=== PATIENT | female | born 1945 | race Caucasian/White ===

== ENCOUNTER 2016-08-04 07:52 | Emergency (ER) | payer MEDICARE, OTHER ==
[~2016-08-04] VITALS: Ht 167.6 cm; Wt 70.5 kg
[~2016-08-04 07:52] MED LIST: LEVO50TA6 PO; PANT40TA3 PO; [UNRECOGNIZED DRUG - CODE] PO
[2016-08-04 07:56] VITALS: BP 144/81; PULSE 79; RESP 18; O2SAT 99
--- NOTE | 2016-08-04 08:03 | ED.REPORT ---
HPI-Eye Problem Date of Service Aug 04, 2016 ED Provider: Bryan Chavez MD The patient is a 71 year old female who presents to the emergency department complaining of bilateral eye problem. Over the last 2 days she has noticed eye redness, "puffy" eyes, purulent drainage, and itching. She has not had similar symptoms in the past. She has had a cough and cold-like symptoms over the last week. She denies visual changes. She has not had any surgeries on her eyes. She does not wear contacts. She was recently prescribed a cough medication. Nursing Notes Stated Complaint: BOTH EYES IN PAIN Chief Complaint: Eye Nursing Notes Reviewed: Yes Allergies: Coded Allergies: No Known Allergies (Verified Allergy, Unknown, 12/27/14) Scheduled Clorazepate Dipotassium (Tranxene T-Tab) 3.75 Mg Tablet 3.75 MG PO TID Levothyroxine (Levothyroxine) 50 Mcg Tablet 50 MCG PO DAILY Pantoprazole DR (Pantoprazole DR) 40 Mg Tablet.dr 40 MG PO DAILY General Time Seen by MD: 08:00 Chief Complaint Both eyes affected Hx Obtained From: Patient Arrived By: Walk-in Sudden in Onset?: Yes Onset Occurred: 2 days ago Symptom Duration: Since onset Progression Since Onset: Constant, Gradually worsening Location: : Eye left: Eye right Quality: Itching Severity: Current: Moderate Severity: Maximum: Severe Recent Healthcare: No recent hospitalization, Recent doctor visit Similar Sx Previous: No Past Medical History Family History Noncontributory Smoking History Never Smoker Social History Other Social History: Good social support, Local resident Ambulatory Status Independent Review of Systems Constitutional: Denies: Chills, Fever Eyes: Reports: Discharge bilateral, Eye pain bilateral (itching), Redness bilateral, Denies: Blurred bilateral, Visual loss bilateral Ears / Nose / Throat: Reports: Nasal congestion Complete sys rev & neg: except as marked. Respiratory: Reports: Non-productive cough Physical Exam Initial Vital Signs Vital Signs (First) Date Time Temp Pulse Resp B/P Pulse Ox O2 Delivery O2 Flow Rate FiO2 08/04/16 07:56 36.0 79 18 144/81 99 Initial VS: Reviewed ENT: Mucous membranes moist, Conjunctiva normal, No scleral icterus Neck: Supple, Non-tender, Full range of motion Respiratory: Breath sounds normal, Clear to auscultation, No respiratory distress Cardiovascular: Regular rate & rhythm, Heart sounds normal, Intact distal pulses Abdomen / GI: Soft, Non-tender, No guarding, No rebound, No distention Extremities: Vascular intact, Neuro intact, No swelling, No tenderness Skin: Warm, Dry, No cyanosis Neurologic: Alert, Oriented, Nonfocal Psychiatric: Mood/affect normal, Behavior normal, Normal thought content Head / Eyes: Normocephalic, PERRL, EOMI Bilateral conjunctival injection with irritated appearing eyes. Swelling of both the upper and lower lids with mild erythema. There is no induration or evidence of infection. No purulent discharge. Re-Eval/Medical Decision Med Decision/Clinical Course He is a generally healthy 71-year-old female who presents with bilateral itchy/ red eyes in the setting of upper respiratory infection. She has normal visual acuity and no purulent drainage from her eyes. She does not wear contact lenses and has not had any exposure. She reports no vision changes and there is no purulent discharge from her eyes. Examination reveals no foreign body. Presentation not consistent with bacterial conjunctivitis. No exposure to other individuals with conjunctivitis. I do not believe this is infectious in etiology. Overall presentation consistent with allergic conjunctivitis. Patient treated with Benadryl and Ketotifen eyedrops. Reported good symptom relief. Patient to use Lacri-Lube and continue antihistamine eyedrops as needed. She will take Benadryl as needed as well. She will return right away for any worsening symptoms or failure of symptoms to resolve. Follow-up and return precautions were reviewed in detail the patient was discharged in good condition. Re-Evaluation/Progress : Time of Eval: 08:12 Re-Evaluation/Progress Note: Discussed exam findings and plan for discharge. All questions were addressed. Counseled Regarding: Diagnosis, Need for follow-up, When/why to return to ED Discharge & Departure Primary Impression: Conjunctivitis Conjunctivitis type: unspecified Laterality: bilateral Qualified Code: H10.9 - Unspecified conjunctivitis Additional Impressions: Itchy eyes Upper respiratory infection URI type: unspecified URI Qualified Code: J06.9 - Acute upper respiratory infection, unspecified Disposition: Home Discharge Condition All VS Reviewed: Yes Condition: Stable Patient Instructions: Conjunctivitis (ED) Additional Instructions: Thank you for seeking care at the emergency room. It is difficult for us to make definitive diagnoses in the ED but we believe that you are experiencing bilateral conjunctivitis. Our primary goal today in the ED was to evaluate you for any life-threatening conditions. Your evaluation was reassuring. You will be discharged with a prescription for eye drops. You can also use over the counter lubricating eye drops such as Lacri lube and oral antihistamines. You should follow-up with your primary doctor in the next week for re- evaluation. You should return to the ED immediately if you develop visual loss, fevers, vomiting, shortness of breath, chest pain, lightheadedness, weakness or any other concerning signs or symptoms. Thank you for letting us partake in your care today. Referrals: Ismael Moon MD (PCP) [place] Attestation Portions of this note were transcribed by Ana Maria Gaitan. I, Dr. Chavez personally performed the history, physical exam and medical decision-making; I reviewed and confirmed the accuracy of the information in the transcribed note. Signed by: Giselle Mcintosh, 08/04/2016 and 0830. copies to: Ismael Moon MD, Beck O MD Aug 04, 2016 08:03 Ana Maria Gaitan Aug 04, 2016 08:16
[2016-08-04] MEDS ORDERED: diphenhydrAMINE 25 mg Capsule PO ONE (08:15)
[2016-08-04] MEDS ORDERED: Ketotifen 0.025% 5 mL Ophthalmic Solution BOTH_EYES SCH (08:15)
[2016-08-04] MEDS ORDERED: KETO5DRO68 OP (08:29)
== END 2016-08-04 08:33 | disposition home or self-care (01) ==
LOC: SED 07:52
DX: H10.9 Unspecified conjunctivitis (principal); H57.8 Other specified disorders of eye and adnexa; J06.9 Acute upper respiratory infection, unspecified

== ENCOUNTER → 2017-03-12 | Day surgery (SDC) | payer MEDICARE, OTHER ==
[~2017-03-12] VITALS: Ht 167.6 cm; Wt 71.6 kg
[~2017-03-12] MED LIST changes: +0.9% Sodium Chloride 1,000 ML IV PRN; +KETO5DRO73 OP; +RANI150C4 PO; +Sodium Chloride LOK Flush 10 mL Syringe IV PRN; +fentaNYL-PF 50 mCg/mL 2 mL Inj IVPUSH PRN
[2017-03-12 11:05] VITALS: BP 151/79; PULSE 59; RESP 17; O2SAT 99
[2017-03-12 12:23] VITALS: BP 126/54; PULSE 67; RESP 17; O2SAT 97
[2017-03-12 12:32] VITALS: BP 107/56; PULSE 62; O2SAT 97
[2017-03-12 12:40] VITALS: BP 134/65; PULSE 60; O2SAT 99
--- NOTE | 2017-03-12 13:14 | ENDO ---
[address] [address] ENDOSCOPY PROCEDURE PATIENT: NIMO NEGRON : 1945 MR#: [id number] ADMIT: 03/12/2017 JOB ID: [id number] PRIMARY PROVIDER: Michael Moon MD PROCEDURE: Esophagogastroduodenoscopy with biopsy. INDICATION: A 71-year-old female with a history of a large schwannoma removed in 2011 surgically. At last endoscopy in 2014 she had a small fundic gland polyp that was biopsied. She reports today for surveillance and is not experiencing any significant symptoms at present. EQUIPMENT: GIF H 180 J. SEDATION: 5 mg Versed, 100 mcg fentanyl. COMPLICATIONS: None identified. PROCEDURE INFORMATION: After the risks and benefits were explained, written and verbal informed consent was obtained. The patient was brought into the endoscopy suite and placed in the left lateral decubitus position. Sedation was achieved as above. The scope was introduced into the mouth through the bite block and advanced to the second portion of the duodenum. The scope was slowly withdrawn to carefully examine the mucosa for any defects or lesions. Retroflexed views were accomplished in the stomach, the stomach was decompressed, and the scope removed from the patient, who tolerated the procedure well. FINDINGS: 1. Duodenum: This appeared visually normal from the bulb through to the second portion. 2. Stomach: No ulcers. No outlet obstruction. No mass lesions. The old scar from prior surgical incision can be seen in retroflexed views. The patient had a moderate sliding hiatal hernia also seen in retroflexed view. There was a small polyp in the proximal stomach removed with cold forceps. No other significant pathology was appreciated. 3. Esophagus: The squamocolumnar junction correlated with the top of the gastric folds. Again a sliding hiatal hernia was noted. No mass lesions. No stricturing. The GEJ was at about 38 cm from the incisors. ENDOSCOPIC DIAGNOSES: 1. Moderate hiatal hernia. 2. Postsurgical changes in the stomach. 3. Diminutive gastric polyp. RECOMMENDATIONS: 1. Await histopathology. 2. Continue anti-reflux therapy. 3. I would consider repeat surveillance endoscopy in two years' time.
--- NOTE | 2017-03-13 17:33 | PATH ---
SURGICAL PATHOLOGY Attending Physician:Frank Quiroz CASE STATUS: Signed Out PATIENT NAME: NIMO NEGRON PID: [id number] : 1945 DATE COLLECTED:03/12/2017 19:50 SPECIMEN: Stomach, Polyp, Biopsy CLINICAL HISTORY: 1). GASTRIC POLYP FINAL DIAGNOSIS: Stomach, Polyp, Biopsy: Oxyntic gastric mucosa with foveolar hyperplasia. Negative for intestinal metaplasia. No evidence of Helicobacter infection. Negative for dysplasia and malignancy. icd10: R10.9 GROSS DESCRIPTION: The specimen is received in one formalin filled container labeled with the patient's name, sublabeled "gastric polyp" and consists of a 0.2 x 0.2 x 0.2 CM portion of tissue which is entirely submitted in one cassette. 03/12/2017DC ICD-9 CODES: CPT CODES: 1: 49143 Electronically Signed Out By Haritha Lincoln MD [facility] [address] [facility], [place] [address] Technical component performed at [facility], [facility] [address], [place], [address]
== END | disposition home or self-care (01) ==
LOC: END 00:36
PROVIDERS: ATTEND Internal Medicine Gastroenterology
DX: C49.A2 Gastrointestinal stromal tumor of stomach (principal); K31.7 Polyp of stomach and duodenum; K44.9 Diaphragmatic hernia without obstruction or gangrene; K21.9 Gastro-esophageal reflux disease without esophagitis; E03.9 Hypothyroidism, unspecified; M79.7 Fibromyalgia
CPT/HCPCS: 43239; G0500; J2250; J3010; J7030